=== PATIENT | male | born 1990 | race Caucasian/White ===

== ENCOUNTER 2016-06-21 12:40 | Emergency (ER) | payer OTHER ==
[~2016-06-21] VITALS: Ht 172.7 cm; Wt 73.3 kg
[2016-06-21 12:51] VITALS: TEMP 37; Ht 172.7 cm; Wt 73.3 kg
[2016-06-21] MEDS ORDERED: ACETAMINOPHEN 500 MG TAB PO STA (13:16)
[2016-06-21] MEDS ORDERED: IBUPROFEN 200 MG TAB PO STA (13:16)
--- NOTE | 2016-06-21 13:25 | EMERGENCY ROOM VISIT NOTE ---
History Report prepared by Chu: Jose Bello Under the Supervision of: Dr. Adan Jimenez M.D. First contact with patient: 13:01 Chief Complaint: BACK PAIN Stated Complaint: LOWER BACK PAIN, PAIN DOWN L SIDE History of Present Illness The patient is a 25 year old male who presents to the Emergency Room with complaints of persistent lower back pain that started a few days ago. He is a prisoner. The patient says the pain started after he slipped and fell off the ladder coming down from his top bunk. He also complains of pain shooting down his left side all the way to his toes. The patient notes that he has urinary symptoms, which include the feeling of having to urinate frequently, and having a hard time urinating. He was told prior to arrival that his reflexes on the left side of his body are compromised. Source of History: patient Onset: A few days ago Position: back (lower) Timing: other (persistent) Associated Symptoms: + urinary symptoms Note: Associated symptoms: Pain shooting down his left side all the way to his toes. Notes that reflexes on left side of his body are compromised. Review of Systems See HPI for pertinent positives & negatives. A total of 10 systems reviewed and were otherwise negative. Past Medical & Surgical Surgical Problems: (1) Right shoulder injury Family History FH: cancer Social History Smoking Status: Current Every Day Smoker Alcohol Use: none Housing Status: other (prisoner) Occupation Status: unemployed Current/Historical Medications Scheduled Bupropion (Wellbutrin), 300 MG PO DAILY Buspirone Hcl (Buspirone Hcl), 10 MG PO DAILY Scheduled PRN Acetaminophen/Codeine (Tylenol W/Codeine #3), 1 TAB PO for Pain Allergies Coded Allergies: Amoxicillin (Unverified Allergy, Severe, hives, 06/21/16) Physical Exam Vital Signs Date Time Temp Pulse Resp B/P Pulse Ox O2 Delivery O2 Flow Rate FiO2 06/21/16 15:14 74 16 134/74 99 06/21/16 12:51 37.0 110 20 123/71 96 Room Air Physical Exam CONSTITUTIONAL: Mild painful distress with positional movements. HEENT: No icterus, moist mucous membranes NECK: No meningismus, trachea is midline. CARDIOVASCULAR: Regular rate, normal perfusion RESPIRATORY: Unlabored breathing. Clear to auscultation. GASTROINTESTINAL: Non-tender GENITOURINARY: No flank tenderness MUSCULOSKELETAL: Negative straight leg raise. 2+ patellar reflexes bilaterally. Normal dorsiflexion of right toes bilaterally. NEUROLOGIC: No acute gross focal deficits. PSYCHIATRIC: Normal affect SKIN: Normal for ethnicity. Medical Decision & Procedures ER Provider Diagnostic Interpretation: X-ray results as stated below per my interpretation and radiologist interpretation. Other radiology results as stated below per my review and radiologist interpretation. LUMBAR SPINE 3 VIEWS CLINICAL HISTORY: Fall with low back pain. FINDINGS: AP, lateral, and coned-down views of the lumbar spine are obtained. The skeletal structures are well mineralized. A mild acute compression fracture is suspected involving L1. Vertebral body height is otherwise maintained throughout the lumbar spine. Alignment is preserved. The transverse and spinous processes are intact. The intervertebral disc spaces are well-maintained. The visualized bony pelvis appears intact. There is a nonobstructed abdominal bowel gas pattern. There is moderate colonic fecal retention. Cholecystectomy clips are identified in the right upper quadrant. IMPRESSION: 1. Suspect a mild acute compression fracture of L1. Correlate for point tenderness at this level. No retropulsion of fragments is seen. 2. No additional findings are concerning for fracture involving the lumbosacral spine. Electronically signed by: Chidi Keen M.D. 06/21/2016 2:07 PM Dictated Date/Time: 06/21/2016 2:[address] OF THE LUMBAR SPINE WITHOUT CONTRAST CT DOSE: 550.12 mGy.cm CLINICAL HISTORY: Left lower back pain. Fall. TECHNIQUE: Axial images of the lumbar spine were obtained without IV contrast. Sagittal and coronal reconstructions were viewed. COMPARISON STUDY: Lumbar spine radiographs performed earlier today. FINDINGS: This exam is mildly compromised by motion artifact. No acute fracture is identified. There is slight wedging of the anterior aspect of the L1 vertebral body. This is probably old. Disc spaces are preserved. Paravertebral soft tissues are unremarkable. Central canal is suboptimally assessed by CT. No significant abnormalities are identified. IMPRESSION: 1. No acute lumbar spine fracture or subluxation. 2. Slight anterior wedging of the L1 vertebral body. This likely reflects a chronic finding. Electronically signed by: Nito Bella M.D. 06/21/2016 3:23 PM Dictated Date/Time: 06/21/2016 3:14 PM Medications Administered Medications (Trade) Dose Ordered Sig/Maye Route Start Time Stop Time Status Last Admin Dose Admin Acetaminophen (Tylenol Tab) 1,000 mg NOW STAT PO 06/21/16 13:16 06/21/16 13:17 DC 06/21/16 13:26 1,000 MG Ibuprofen (Advil Tab) 800 mg NOW STAT PO 06/21/16 13:16 06/21/16 13:17 DC 06/21/16 13:26 800 MG ED Course 1311: Past medical records reviewed. The patient was evaluated in room C2B. A complete history and physical examination was performed. 1316: Ordered Advil Tab 800 mg PO, Tylenol Tab 1000 mg PO. 1534: I reevaluated the patient and he is resting comfortably. The patient verbally expressed understanding and agreement of the treatment plan. The patient will be discharged. Medical Decision Differential diagnoses include: contusion, fracture. 25-year-old presented to the emergency department for evaluation of lower lumbar pain after falling from his [employer] bunk. He had moderate midline tenderness of the lower L-spine with normal neurologic exam included 2+ patellar reflexes and normal strength of great toes bilaterally. Initial screening x-rays were suspicious for possible bony injury but follow-up CT L- spine was negative for fracture. Patient discharged with guards and given copy of CT report and advised to take Tylenol Motrin every 6 hours as needed for pain Impression Primary Impression: Back contusion Scribe Attestation The scribe's documentation has been prepared under my direction and personally reviewed by me in its entirety. I confirm that the note above accurately reflects all work, treatment, procedures, and medical decision making performed by me. Departure Information Dispostion Home / Self-Care Forms HOME CARE DOCUMENTATION FORM, IMPORTANT VISIT INFORMATION Patient Instructions ED Contusion Back, My [facility]
[2016-06-21] MEDS ORDERED: BUPR-83 PO (14:06)
[2016-06-21] MEDS ORDERED: ACET-749 PO (14:06)
[2016-06-21] MEDS ORDERED: BUSP-8 PO (14:06)
--- NOTE | 2016-06-21 14:09 | DIAGNOSTIC IMAGING REPORT ---
LUMBAR SPINE 3 VIEWS CLINICAL HISTORY: Fall with low back pain. FINDINGS: AP, lateral, and coned-down views of the lumbar spine are obtained. The skeletal structures are well mineralized. A mild acute compression fracture is suspected involving L1. Vertebral body height is otherwise maintained throughout the lumbar spine. Alignment is preserved. The transverse and spinous processes are intact. The intervertebral disc spaces are well-maintained. The visualized bony pelvis appears intact. There is a nonobstructed abdominal bowel gas pattern. There is moderate colonic fecal retention. Cholecystectomy clips are identified in the right upper quadrant. IMPRESSION: 1. Suspect a mild acute compression fracture of L1. Correlate for point tenderness at this level. No retropulsion of fragments is seen. 2. No additional findings are concerning for fracture involving the lumbosacral spine. Electronically signed by: Chidi Keen M.D. 06/21/2016 2:07 PM Dictated Date/Time: 06/21/2016 2:04 PM
[2016-06-21 15:14] VITALS: BP 134/74; PULSE 74; O2SAT 99
--- NOTE | 2016-06-21 15:25 | DIAGNOSTIC IMAGING REPORT ---
CT OF THE LUMBAR SPINE WITHOUT CONTRAST CT DOSE: 550.12 mGy.cm CLINICAL HISTORY: Left lower back pain. Fall. TECHNIQUE: Axial images of the lumbar spine were obtained without IV contrast. Sagittal and coronal reconstructions were viewed. COMPARISON STUDY: Lumbar spine radiographs performed earlier today. FINDINGS: This exam is mildly compromised by motion artifact. No acute fracture is identified. There is slight wedging of the anterior aspect of the L1 vertebral body. This is probably old. Disc spaces are preserved. Paravertebral soft tissues are unremarkable. Central canal is suboptimally assessed by CT. No significant abnormalities are identified. IMPRESSION: 1. No acute lumbar spine fracture or subluxation. 2. Slight anterior wedging of the L1 vertebral body. This likely reflects a chronic finding. Electronically signed by: Nito Bella M.D. 06/21/2016 3:23 PM Dictated Date/Time: 06/21/2016 3:14 PM
== END 2016-06-21 15:59 | disposition home or self-care (01) ==
LOC: C.EDB 12:44 → C.EDC 15:59
DX: S20.229A Contusion of unspecified back wall of thorax, initial encounter (principal); W11.XXXA Fall on and from ladder, initial encounter; Y92.143 Cell of prison as the place of occurrence of the external cause; F17.200 Nicotine dependence, unspecified, uncomplicated